=== PATIENT | female | born 1940 | race Caucasian/White ===

== ENCOUNTER 2019-05-03 18:52 | Emergency (ER) | payer MEDICARE, MEDICAID ==
[~2019-05-03] VITALS: Ht 165.1 cm; Wt 54.4 kg
[2019-05-03] MEDS ORDERED: LIPITOR (18:59)
[2019-05-03] MEDS ORDERED: ASPI81TA31 PO (18:59)
[2019-05-03] MEDS ORDERED: LISINOPRIL (18:59)
[2019-05-03] MEDS ORDERED: ACETAMINOPHEN ES 500 MG TABLET PO ONE (19:45)
[2019-05-03] MEDS ORDERED: ACETAMINOPHEN ES 500 MG TABLET ONE (19:50)
--- NOTE | 2019-05-03 20:45 | NUR ---
PT RECEIVED LAYING ON HIGH KING'S POSITION ON GURNEY, SUPINE ABLE TO SPEAK CLEAR AND COMPLETE SENTENCES. PT DENIES LOC, DENIES DIZZINESS DENIES NVD SIDERAILSX2 UP, BED AT LOWEST POSITION
--- NOTE | 2019-05-03 21:00 | NUR ---
SPLINT APPLIED ORDERED,SUPPORTED BY ELBOW SLING ABLE TO TOLERATE
[2019-05-04 03:21] VITALS: BP 103/70
== END 2019-05-03 21:00 | disposition home or self-care (01) ==
LOC: ER 18:52
DX: S52.021A Displaced fracture of olecranon process without intraarticular extension of right ulna, initial encounter for closed fracture (principal); E78.5 Hyperlipidemia, unspecified; Z79.82 Long term (current) use of aspirin; Z79.899 Other long term (current) drug therapy; W01.198A Fall on same level from slipping, tripping and stumbling with subsequent striking against other object, initial encounter; Y93.89 Activity, other specified; Y92.89 Other specified places as the place of occurrence of the external cause; Y99.8 Other external cause status
CPT/HCPCS: 73080; 73090; A4663; A9150

== ENCOUNTER 2020-11-04 09:38 | Emergency (ER) | payer MEDICARE, OTHER ==
[~2020-11-04] VITALS: Ht 167.6 cm; Wt 49.9 kg
[~2020-11-04 09:38] MED LIST: ASPI81TA31 PO; LIPITOR; LISINOPRIL
--- NOTE | 2020-11-04 09:40 | NUR ---
Dr Malcolm at the bedside for MSE.
--- NOTE | 2020-11-04 09:46 | NUR ---
Note ann in EDM - 11/04/20 at 0950 by FLAVIA Patient discharged to home in stable condition. Written and verbal after care instructions given. Patient'mother verbalizes understanding of instructions. Stressed follow up or return to ER for worsening s/s.pt comdortable, held by mother. no sign of distress.
[2020-11-04] MEDS ORDERED: LISI20TA30 PO (09:50)
[2020-11-04] MEDS ORDERED: SULF1TAB48 PO (09:50)
[2020-11-04] MEDS ORDERED: ATOR20TA PO (09:50)
--- NOTE | 2020-11-04 10:32 | NUR ---
Patient discharged to home in stable condition. Written and verbal after care instructions given. Patient verbalizes understanding of instructions. Stressed follow up or return to ER for worsening s/s. Pt left ER w/ steady gait accompained by son.
[2020-11-04 10:34] VITALS: BP 110/64
== END 2020-11-04 10:35 | disposition home or self-care (01) ==
LOC: ER 09:39
DX: S23.3XXA Sprain of ligaments of thoracic spine, initial encounter (principal); S43.51XA Sprain of right acromioclavicular joint, initial encounter; W07.XXXA Fall from chair, initial encounter; Y93.89 Activity, other specified; Y92.039 Unspecified place in apartment as the place of occurrence of the external cause; R55 Syncope and collapse; E78.5 Hyperlipidemia, unspecified; Z79.82 Long term (current) use of aspirin; Z79.899 Other long term (current) drug therapy; M85.80 Other specified disorders of bone density and structure, unspecified site
CPT/HCPCS: 72072; 73030; A4663